=== PATIENT | male | born 2000 | race African-American/Black ===

== ENCOUNTER 2022-01-03 07:25 | Emergency (ER) | payer SELFPAY ==
[~2022-01-03] VITALS: Ht 182.9 cm; Wt 65.0 kg
[2022-01-03 07:30] VITALS: BP 114/50
[2022-01-03] MEDS ORDERED: CEFTRIAXONE SODIUM 500 MG/VIAL IM ONE (07:45)
[2022-01-03] MEDS ORDERED: LIDOCAINE HCL 1% 20ML VIAL (Pyxis) INJ INFIL ONE (07:45)
[2022-01-03] MEDS ORDERED: DOXY100T2 MT (07:57)
[2022-01-06 05:12] LABS: NEISSERIA GONORRHOEAE NAA Positive (Negative)
== END 2022-01-03 08:23 | disposition home or self-care (01) ==
LOC: ER 07:25
DX: N34.2 Other urethritis (principal); Z20.2 Contact with and (suspected) exposure to infections with a predominantly sexual mode of transmission
CPT/HCPCS: 87491; 87591; 96372; 99283; J0696; J3490